=== PATIENT | female | born 1965 | race Caucasian/White ===

== ENCOUNTER → 2021-01-15 12:20 | Outpatient (CLI) | payer OTHER, SELFPAY ==
--- NOTE | ~2021-01-15 | DEXA_ITS ---
Bone Density Report Name: Nadeem Munoz Age: 55 Sex: Female Ethnicity: White Date of : 1965 Indication: postmenopausal; screening for osteoporosis; hysterectomy; Referring Provider: TAMMY GRANT Study: Bone densitometry was performed. Exam Date: January 15, 2021 Accession number: [id number] Bone Density: Region BMD T-score Z-score Classification AP Spine (L1-L4) 0.991 -0.5 0.6 Normal Femoral Neck (Left) 0.777 -0.7 0.4 Normal Total Hip (Left) 0.919 -0.2 0.5 Normal Femoral Neck (Right) 0.789 -0.5 0.5 Normal Total Hip (Right) 0.943 0.0 0.7 Normal Total Hip Mean 0.931 -0.1 0.6 Normal World Health Organization criteria for BMD impression classify patients as: Normal (T-score at or above -1.0), Osteopenia (T-score between -1.0 and -2.5), or Osteoporosis (T-score at or below -2.5). 10-year Fracture Risk: FRAX not reported because: All T-scores for Spine Total, Hip Total, Femoral Neck at or above -1.0 Treated for osteoporosis Clinical Information Provided by Patient: Is being treated for osteoporosis Has used the following medications: HRT (i.e. estrogen/hormone therapy), Vitamin D, Calcium Has the following medical conditions: Hysterectomy Patient maximum height was 63.5 Menopause Age: 46 Drinks caffeinated beverages Onset of menses at age 8 Number of children 2 Impression: The patient has normal bone mass. Discussion: It is important to ask patients whether they are taking their medications and to encourage continued and appropriate compliance with their osteoporosis therapies to reduce fracture risk. It is also important to review their risk factors and encourage appropriate calcium and vitamin D intakes, exercise, fall prevention and other lifestyle measures. Follow-Up: Consider a repeat BMD and Vertebral Fracture Assessment (VFA) exam in 2 years or sooner if medically necessary, to reassess this patient's status. Reported by: JESSICA on 01/15/2021 12:50:00 PM. Reviewed, dictated and finalized at location [facility]
== END ==
PROVIDERS: PCP Emergency Medicine; Visit Provider Emergency Medicine
DX: Z78.0 Asymptomatic menopausal state (principal)
CPT/HCPCS: 77080

== ENCOUNTER 2021-08-10 00:26 | Day surgery (SDC) | payer OTHER, SELFPAY ==
[2021-07-29 14:27] VITALS: BMI 34.0
[2021-08-10 08:13] VITALS: BP 120/82; PULSE 73; RESP 20; TEMP 37.1; O2SAT 100
[2021-08-10] MEDS: LACTATED RINGERS 1,000 ML 150 ML IV CONT (08:18)
--- NOTE | 2021-08-10 08:55 | P.PNAN_ITS ---
Anes - Initial Pre Proc Eval Procedure: Operation Date: 08/10/21 09:30 Proposed Procedures p Esophagogastroduodenoscopy & Colonoscopy - Delroy Enamorado MD Date/Time: 08/10/21 08:55 Surgeon: Delroy Enamorado MD Pre Op Diagnosis: MIKE Patient Data Age: 55 Gender: F Height: 1.6 m Weight: 86.1 kg Last Vital Signs Temp 98.8 F 08/10/21 08:13 Pulse 73 08/10/21 08:13 Resp 20 08/10/21 08:13 BP 120/82 08/10/21 08:13 Pulse Ox 100 08/10/21 08:13 Allergies Allergy/AdvReac Type Severity Reaction Status Date / Time adhesive tape Allergy Unknown Rash Verified 08/10/21 08:12 cyclobenzaprine Allergy Unknown Hives Verified 08/10/21 08:12 POWDER IN GLOVES Allergy Mild - Uncoded 07/29/21 14:22 IRRITATION, FPC USE- CRACKED SKIN. Home Medications Medication Instructions Recorded Confirmed Type sertraline 25 mg tablet 25 mg PO DAILY #90 tablet 06/27/19 07/29/21 Rx cetirizine [Zyrtec] 10 mg PO DAILY 07/29/21 07/29/21 History conjugated estrogens [Premarin] 0.45 mg PO DAILY 07/29/21 07/29/21 History erenumab-aooe [Aimovig 140 mg SUBCUT MONTHLY 07/29/21 07/29/21 History Autoinjector] sumatriptan succinate 100 mg PO DAILY PRN 07/29/21 07/29/21 History topiramate 100 mg PO BID 07/29/21 07/29/21 History Patient hx anesthesia problems: none Family hx anesthesia problems: none Results Review: All pre-operative results and documents have been reviewed as part of the pre-operative evaluation. [facility] Family History Family History (Updated 02/12/16 @ 23:19 by DOCTOR UNKNOWN) Mother Family history of malignant neoplasm of breast in first degree relative Social History Social History Smoking status: Never smoker Alcohol intake: never Substance use: never Substance use type: does not use Living arrangements: with family Spiritual care concerns: No Anes - Eval Final PreProcedure Day of Procedure 08/10/21 08:55 Patient weight: obese Heart: regular rate and rhythm Lungs: clear to auscultation Airway: Mallampati scale class II Neurological: alert and oriented Last oral intake: >/= 8 hours ASA classification: II Emergent: no Anesthetic plan: proceed Anesthesia type and monitoring: general GIVS and standard monitoring Results Review: All pre-operative results and documents have been reviewed as part of the pre-operative evaluation. Informed Consent: The patient's anesthetic plan and its attendant risks and benefits were discussed with the patient/family/POA. Questions were solicited and answers provided to the satisfaction of the patient/family/POA.
--- NOTE | 2021-08-10 09:07 | PM.HPGS ---
History of Present Illness History of Present Illness Consent: Risks, benefits, and alternatives have been discussed and questions answered. Patient agrees to proceed with procedure. Chief complaint: MIKE Narrative: Nadeem Munoz is a 55 year old female with gastric bypass ~ 10 years ago for weight loss, noted to have low iron/ferritin values for years (hb almost normal), denies overt gib. Last egd and colonoscopy ~ 10 years ago. Review of Systems Constitutional: Constitutional: Denies headache(s) and Denies weakness Eyes: Eyes: Denies blurry vision ENT: Reports Normal hearing present, Denies headache(s) and Denies neck pain Cardiovascular: Cardiovascular: Denies chest pain and Denies dyspnea Respiratory: Respiratory: Denies dyspnea Gastrointestinal: Gastrointestinal: Reports no additional gastrointestinal complaints Genitourinary: Genitourinary: Denies dysuria Musculoskeletal: Musculoskeletal: Denies neck pain Integumentary/Breasts: Skin/Breast: Denies dry skin Neurologic: Reports Normal hearing present, Denies headache(s) and Denies weakness Psychiatric: Psychiatric: Denies anxiety Endocrine: Endocrine: Denies change in body appearance Hematologic/Lymphatic: Hematologic/Lymphatic: Denies easy bleeding Allergic/Immunologic: Allergic/Immunologic: Denies urticaria PMFSH Past Medical History Medical History (Updated 08/10/21 @ 09:08 by Delroy Enamorado MD) Iron deficiency anemia Surgical History Surgical History (Updated 08/10/21 @ 09:08 by Delroy Enamorado MD) Gastric bypass status for obesity Family History Family History (Updated 02/12/16 @ 23:19 by DOCTOR UNKNOWN) Mother Family history of malignant neoplasm of breast in first degree relative Social History Social History Smoking status: Never smoker Alcohol intake: never Substance use: never Substance use type: does not use Living arrangements: with family Spiritual care concerns: No Meds Home Medications and Allergies Home Medications Medication Instructions Recorded Confirmed Type sertraline 25 mg tablet 25 mg PO DAILY #90 tablet 06/27/19 07/29/21 Rx cetirizine [Zyrtec] 10 mg PO DAILY 07/29/21 07/29/21 History conjugated estrogens [Premarin] 0.45 mg PO DAILY 07/29/21 07/29/21 History erenumab-aooe [Aimovig 140 mg SUBCUT MONTHLY 07/29/21 07/29/21 History Autoinjector] sumatriptan succinate 100 mg PO DAILY PRN 07/29/21 07/29/21 History topiramate 100 mg PO BID 07/29/21 07/29/21 History Allergies Allergy/AdvReac Type Severity Reaction Status Date / Time adhesive tape Allergy Unknown Rash Verified 08/10/21 08:12 cyclobenzaprine Allergy Unknown Hives Verified 08/10/21 08:12 POWDER IN GLOVES Allergy Mild - Uncoded 07/29/21 14:22 IRRITATION, CONTRACT COORDINATOR USE- CRACKED SKIN. Vital Signs Vital Signs - 24 hr 08/10/21 08:13 Temperature 98.8 F Pulse Rate 73 Respiratory Rate 20 Blood Pressure 120/82 Pulse Oximetry 100 Exam Const: General: comfortable and no acute distress HENMT: General nose exam: Normal nares present Eyes: General: appearance normal, both eyes and all related structures Neck: Neck: no JVD Resp: Auscultation: clear to auscultation bilaterally Cardio: Rate: regular rate Rhythm: regular rhythm GI: Inspection: non-distended GI Palp: Yes Soft to palpation Skin: General skin exam: normal color Neuro: General: gait normal Speech: normal speech Extrem: General: normal to inspection Psych: Mental Status: mental status grossly normal Assessment and Plan Assessment and plan (1) Iron deficiency anemia: Code(s): D50.9 - Iron deficiency anemia, unspecified Status: Acute Assessment and Plan: egd and colonoscopy to assess if evidence of gi blood loss (2) Gastric bypass status for obesity: Code(s): Z98.84 - Bariatric surgery status Status: Acute Assessment and Plan: probably thi
[2021-08-10 09:39] VITALS: BP 86/45; PULSE 61; RESP 20; O2SAT 100
--- NOTE | 2021-08-10 09:40 | SUR.OPER ---
EGD Start 915 End 918, Colon start 923 End 935
[2021-08-10 09:49] VITALS: BP 90/61; PULSE 61; RESP 17; O2SAT 100
[2021-08-10 09:59] VITALS: BP 94/66; PULSE 60; RESP 16; O2SAT 100
== END 2021-08-10 10:05 | disposition home or self-care (01) ==
PROVIDERS: PCP Emergency Medicine; Visit Provider Internal Medicine Gastroenterology
PROC: 0DJ08ZZ Inspection of Upper Intestinal Tract, Via Natural or Artificial Opening Endoscopic (ICD-10-PCS; CPT 43235; principal; 2021-08-10 09:30)
DX: Z12.11 Encounter for screening for malignant neoplasm of colon (principal); D50.9 Iron deficiency anemia, unspecified; Z98.84 Bariatric surgery status; E66.9 Obesity, unspecified; Z68.33 Body mass index [BMI] 33.0-33.9, adult
CPT/HCPCS: 45378; 43239; 88305; J2704; J7120

== ENCOUNTER → 2025-03-26 16:41 | Outpatient (CLI) | payer OTHER, SELFPAY ==
--- NOTE | ~2025-03-26 | XR_ITS ---
EXAMINATION: XR chest 2V, 03/26/2025 17:15 CDT HISTORY: CONGESTION COMPARISON: No comparisons available. Technique: 2 views obtained. Findings: The lungs are clear, no effusion. No pneumothorax. Heart is normal size. Mediastinal and hilar contours are within normal limits. Bony thorax no acute abnormality. Impression: No acute cardiopulmonary abnormality. Reviewed, dictated and finalized at location A. Impression: No acute cardiopulmonary abnormality.
== END ==
LOC: EXPCRAD 16:47
PROVIDERS: PCP Nurse Practitioner Family; Visit Provider Nurse Practitioner Family
DX: R09.81 Nasal congestion (principal)
CPT/HCPCS: 71046